=== PATIENT | male | born 1970 | race Caucasian/White ===

== ENCOUNTER 2021-03-05 09:53 | Emergency (ER) | payer MEDICAID ==
--- NOTE | 2021-03-05 09:58 | EDM.PDOC ---
ED HPI GENERAL MEDICAL PROBLEM - General Chief Complaint: General Stated Complaint: SOB, HTN Time Seen by Provider: 03/05/21 10:00 Source of Information: Reports: Patient History Limitations: Reports: No Limitations - History of Present Illness INITIAL COMMENTS - FREE TEXT/NARRATIVE: This patient is a 50 year old male that presents to the ER. Patient reports that for the past 1 year he has had shortness of breath and BLE swelling. The patient reports that gradually over the year he has become more short of breath and increase in BLE edema. Patient reports he was seen in clinic and referred to venous clinic for veins in legs due to the swelling. Patient reports the [facility] that he saw 2 weeks ago, referred him back to his PCP because it was not vein related, but they felt heart related. Patient reports he is supposed to see his PCP to rule out heart related problems for his shortness of breath and edema, but has not yet. The patient reports that he presents to the ER today because since Friday his shortness of breath has become much worse. He reports an increased tightness in his chest that is worse than the previous 1 year. He reports that he continues to have swelling in his BLE and has worsened as well. The patient reports that activity does make his shortness of breath worse. He reports that laying flat or sitting in chair has no difference on his shortness of breath. Patient reports also this weekend having nausea and headache. Denies dizziness, v, d, f, cough, congestion, drainage, rashes. 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 But, when it continued into Friday, he thought he should come to the ER. Onset: Other (1 year) Duration: Getting Worse (Much worse since Friday, even worse this morning per patient.) Location: Reports: Chest Quality: Reports: Other ("tightness") Severity: Moderate Improves with: Reports: None Worsens with: Reports: None Associated Symptoms: Reports: Chest Pain, Cough, Headaches, Nausea/Vomiting, Shortness of Breath. Denies: cough w sputum, Diaphoresis, Fever/Chills, Loss of Appetite, Malaise, Rash, Seizure, Syncope, Weakness - Related Data Allergies Allergy/AdvReac Type Severity Reaction Status Date / Time No Known Allergies Allergy Verified 03/05/21 09:57 Home Meds: Home Meds Escitalopram [Lexapro] 10 mg PO DAILY 03/05/21 [History] Hydrochlorothiazide/Lisinopril [Lisinopril-HCTZ 20-12.5 MG] 1 tab PO DAILY 03/05/21 [History] Ibuprofen 200 mg PO Q6HR PRN 03/05/21 [History] Meloxicam 15 mg PO DAILY 03/05/21 [History] Pantoprazole Sodium [Protonix] 40 mg PO DAILY 03/05/21 [History] ED ROS GENERAL - Review of Systems Review Of Systems: See Below Constitutional: Reports: No Symptoms HEENT: Reports: No Symptoms Respiratory: Reports: Shortness of Breath. Denies: Wheezing, Pleuritic Chest Pain, Cough, Sputum, Hemoptysis Cardiovascular: Reports: Chest Pain, Blood Pressure Problem (HTN per patient), Dyspnea on Exertion, Edema (BLE). Denies: Orthopnea, Palpitations, Syncope Endocrine: Reports: No Symptoms GI/Abdominal: Reports: Nausea : Reports: No Symptoms Musculoskeletal: Reports: No Symptoms Skin: Reports: No Symptoms Neurological: Reports: No Symptoms Psychiatric: Reports: No Symptoms Hematologic/Lymphatic: Reports: No Symptoms Immunologic: Reports: No Symptoms ED EXAM, GENERAL - Physical Exam Exam: See Below Exam Limited By: No Limitations General Appearance: Alert, WD/WN, No Apparent Distress, Obese Eye Exam: Bilateral Eye: Normal Inspection, PERRL Ears: Normal External Exam, Normal Canal, Hearing Grossly Normal, Normal TMs Ear Exam: Bilateral Ear: Auricle Normal, Canal Normal, TM normal Nose: Normal Inspection, Normal Mucosa, No Blood Throat/Mouth: Normal Inspection, Normal Lips, Normal Teeth, Normal Gums, Normal Oropharynx, Normal Voice, No Airway Compromise Head: Atraumatic, Normocephalic Neck: Normal Inspection, Supple, Non-Tender, Full Range of Motion Respiratory/Chest: No Respiratory Distress, Lungs Clear, Normal Breath Sounds, No Accessory Muscle Use, Chest Non-Tender Cardiovascular: Normal Peripheral Pulses, Regular Rate, Rhythm, No Gallop, No JVD, No Murmur, No Rub, Other (BLE Edema Pitting: +3 ) Peripheral Pulses: 2+: Radial (L), Radial (R), Posterior Tibial (L), Posterior Tibial (R), Dorsalis Pedis (L), Dorsalis Pedis (R) GI/Abdominal: Soft, Non-Tender Back Exam: Normal Inspection, Full Range of Motion Extremities: Normal Inspection, Normal Range of Motion, Non-Tender, Normal Capillary Refill, Pedal Edema (+3 BLE) Neurological: Alert, Oriented, Normal Cognition, Normal Gait, No Motor/Sensory Deficits Psychiatric: Anxious Skin Exam: Warm, Dry, Intact, Normal Color, No Rash Lymphatic: No Adenopathy #1 Interpretation EKG Date: 03/05/21 Time: 09:56 Rhythm: NSR Rate (Beats/Min): 88 QRS: Normal ST-T: Normal Comparison: NA - No Prior EKG Course - Vital Signs Last Recorded V/S: Last Vital Signs Temp 96.9 F 03/05/21 09:54 Pulse 78 03/05/21 12:10 Resp 18 03/05/21 10:40 BP 129/64 03/05/21 12:10 Pulse Ox 97 03/05/21 10:40 - Orders/Labs/Meds Orders: Active Orders 24 hr Category Date Time Status Ang Chest [CT] Stat Exams 03/05/21 10:54 Taken Chest 2V [CR] Stat Exams 03/05/21 09:39 Taken TROPONIN I [CHEM] Stat Lab 03/05/21 14:15 Ordered Sodium Chloride 0.9% [Normal Saline] 500 ml Med 03/05/21 12:00 Active IV .BOLUS Sodium Chloride 0.9% [Saline Flush] Med 03/05/21 10:27 Active 10 ml FLUSH ASDIRECTED PRN Saline Lock Insert [OM.PC] Routine Oth 03/05/21 10:27 Ordered Medication Orders Sodium Chloride (Normal Saline) 500 mls @ 1,000 mls/hr IV .BOLUS CRISTI Last Admin: 03/05/21 11:56 Dose: 1,000 mls/hr Documented by: MACKRIC Sodium Chloride (Sodium Chloride 0.9% 10 Ml Syringe) 10 ml FLUSH ASDIRECTED PRN PRN Reason: Keep Vein Open Labs: Laboratory Tests 03/05/21 03/05/21 03/05/21 Range/Units 10:18 10:18 10:18 WBC 9.2 (5.0-10.0) 10^3/uL RBC 5.26 (4.50-6.00) 10^6/uL Hgb 16.9 (14.0-18.0) g/dL Hct 50.0 (40.0-54.0) % MCV 95.1 H (82.0-94.0) fL MCH 32.1 H (27.0-32.0) pg MCHC 33.8 (33.0-38.0) g/dL RDW Coeff of Clarence 13.6 (11.0-15.0) % Plt Count 250 (150-400) 10^3/uL Add Manual Diff Yes Neutrophils % (Manual) 61 (35-85) % Lymphocytes % (Manual) 24 (21-55) % Monocytes % (Manual) 4 (2-12) % Eosinophils % (Manual) 11 H (0-5) % PT 10.3 (9.7-12.3) SEC INR 0.94 (0.92-1.18) D-Dimer, Quantitative (0.00-0.50) Sodium 141 (136-145) mEq/L Potassium 4.0 (3.5-5.0) mEq/L Chloride 104 (98-106) mEq/L Carbon Dioxide 25 (21-32) mmol/L BUN 12 (7-18) mg/dL Creatinine 1.2 (0.7-1.3) mg/dL Est Cr Clr Drug Dosing 75.28 mL/min Estimated GFR (MDRD) > 60 (>=60) mL/min Glucose 120 H (75-99) mg/dL Calcium 8.5 (8.4-10.1) mg/dL Total Bilirubin 0.6 (0.0-1.0) mg/dL AST 16 (15-37) U/L ALT 20 (12-78) U/L Alkaline Phosphatase 115 (46-116) U/L Lactate Dehydrogenase 197 H (100-190) U/L Creatine Kinase 130 (35-232) U/L Troponin I < 0.017 (0.00-0.06) ng/mL NT-Pro-B Natriuret Pep 31 (0-1000) pg/mL Total Protein 7.0 (6.4-8.2) g/dL Albumin 3.0 L (3.4-5.0) g/dL SARS CoV-2 RNA Rapid CHEMO (NEGATIVE) 03/05/21 03/05/21 Range/Units 10:31 10:55 WBC (5.0-10.0) 10^3/uL RBC (4.50-6.00) 10^6/uL Hgb (14.0-18.0) g/dL Hct (40.0-54.0) % MCV (82.0-94.0) fL MCH (27.0-32.0) pg MCHC (33.0-38.0) g/dL RDW Coeff of Clarence (11.0-15.0) % Plt Count (150-400) 10^3/uL Add Manual Diff Neutrophils % (Manual) (35-85) % Lymphocytes % (Manual) (21-55) % Monocytes % (Manual) (2-12) % Eosinophils % (Manual) (0-5) % PT (9.7-12.3) SEC INR (0.92-1.18) D-Dimer, Quantitative 2.12 H (0.00-0.50) Sodium (136-145) mEq/L Potassium (3.5-5.0) mEq/L Chloride (98-106) mEq/L Carbon Dioxide (21-32) mmol/L BUN (7-18) mg/dL Creatinine (0.7-1.3) mg/dL Est Cr Clr Drug Dosing mL/min Estimated GFR (MDRD) (>=60) mL/min Glucose (75-99) mg/dL Calcium (8.4-10.1) mg/dL Total Bilirubin (0.0-1.0) mg/dL AST (15-37) U/L ALT (12-78) U/L Alkaline Phosphatase (46-116) U/L Lactate Dehydrogenase (100-190) U/L Creatine Kinase (35-232) U/L Troponin I (0.00-0.06) ng/mL NT-Pro-B Natriuret Pep (0-1000) pg/mL Total Protein (6.4-8.2) g/dL Albumin (3.4-5.0) g/dL SARS CoV-2 RNA Rapid CHEMO Negative (NEGATIVE) Meds: Medications Generic Name Dose Route Start Last Admin Trade Name Freq PRN Reason Stop Dose Admin Sodium Chloride 500 mls @ 1,000 mls/hr 03/05/21 12:00 03/05/21 11:56 Normal Saline IV 1,000 mls/hr .BOLUS CRISTI Administration Sodium Chloride 10 ml 03/05/21 10:27 Sodium Chloride 0.9% 10 Ml Syringe FLUSH ASDIRECTED PRN Keep Vein Open Discontinued Medications Generic Name Dose Route Start Last Admin Trade Name Verenice PRN Reason Stop Dose Admin Aspirin 324 mg 03/05/21 10:26 03/05/21 10:33 Aspirin 81 Mg Tab.Chew PO 03/05/21 10:27 324 mg ONETIME ONE Administration Iopamidol 100 ml 03/05/21 11:15 03/05/21 11:53 Iopamidol 755 Mg/Ml 100 Ml Bottle IVPUSH 03/05/21 11:16 100 ml ONETIME ONE Administration Morphine Sulfate 4 mg 03/05/21 11:37 03/05/21 11:55 Morphine 4 Mg/Ml Vial IVPUSH 03/05/21 11:38 4 mg ONETIME ONE Administration Morphine Sulfate 4 mg 03/05/21 12:29 03/05/21 12:59 Morphine 4 Mg/Ml Vial IVPUSH 03/05/21 12:30 4 mg ONETIME ONE Administration Nitroglycerin 0.4 mg 03/05/21 10:28 03/05/21 12:10 Nitroglycerin 0.4 Mg Tab.Sl SL 0.4 mg Q5M PRN Administration Chest Pain Ondansetron HCl 4 mg 03/05/21 11:37 03/05/21 11:55 Ondansetron 4 Mg/2 Ml Sdv IVPUSH 03/05/21 11:38 4 mg NOW STA Administration Ondansetron HCl 4 mg 03/05/21 12:13 03/05/21 12:21 Ondansetron 4 Mg/2 Ml Sdv IVPUSH 03/05/21 12:14 4 mg NOW STA Administration - Radiology Interpretation Free Text/Narrative:: CXR: Lungs clear, no acute findings. CTA Chest: No evidence of PE, minor atelectasis in the lingula and right middle lobe. No significant nodules or infiltrates, no effusion. Small hiatal hernia, simple left renal cyst. CT Results Date: 03/05/21 CT Results Time: 13:05 - Re-Assessments/Exams Free Text/Narrative Re-Assessment/Exam: 03/05/21 11:11 Patient reports the nitro did help his shortness of breath and chest tightness some. He reports his pain was a 7/10, now to a 5/10. Patient D-dimer is elevated, will CTA chest and COVID test. Patient BNP is wnl, troponin wnl, other labs unremarkable other than his D-Dimer. Patient does report that at the [facility] in [place], they did US of both his legs and he did not have a blood clot in legs. 03/05/21 11:44 HEART Score 4, moderate. Patient reports he is a 1/2 pack/day smoker. Denies alcohol use. Reports father side has history of heart problems with father having VA in 50s. 03/05/21 11:57 Will give NS 500ml bolus due to getting Iv contrast dye. Patient got double dose per radiology due to IV location. RN was unable to obtain IV access above the wrist. 03/05/21 12:18 Patient reports after the 3 SL nitro, Morphine, and Zofran his pain remains at a 5/10. He reports his shortness of breath is mildly better, but still present. He reports that he has nausea at this time. 03/05/21 13:24 This patient reports that his shortness of breath has improved. He reports the chest pain tightness is much better. He will not give it a number for me now, but reports its "basically gone". I discussed with the patient having a stress test done. He reports he agrees to have a stress test done. The stress test in [place] can be done on . 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 We discussed me calling [facility] in [place]. Discussed with him, if he is willing for transfer if they would like to admit and stress test in the morning. He refuses this. He reports that he is not going to be transferred. He reports that he just wants to have the stress test here in [place]. He reports that he can followup with his PCP tomorrow for a recheck. I educated the patient about his risk factors and the need for a stress test. Discussed risk with not consulting cardiology, but he reports he just wants to be discharged and followup with PCP tomorrow and stress later this week. I discussed with him about possible admission, but patient has refused this as well. Educated the patient about risk of , cardiac arrest. The patient reports that he will come back if his shortness of breath or chest pain worsens, or other concerns. The patient has agreed to allow me to redraw a repeat troponin. If negative, will discharge home at patient request. He is aware of all the risk vs benefits associated with discharge home and has accepted the risks. Departure - Departure Time of Disposition: 14:25 Disposition: Home, Self-Care 01 Condition: Fair Clinical Impression: Nausea, Pitting edema Chest pain Qualifiers: Chest pain type: unspecified Qualified Code(s): R07.9 - Chest pain, unspecified Dyspnea Qualifiers: Dyspnea type: shortness of breath Qualified Code(s): R06.02 - Shortness of breath; R06.00 - Dyspnea, unspecified; R06.01 - Orthopnea - Discharge Information *PRESCRIPTION DRUG MONITORING PROGRAM REVIEWED*: Not Applicable *COPY OF PRESCRIPTION DRUG MONITORING REPORT IN PATIENT BRENDAN: Not Applicable Instructions: Shortness of Breath, Adult, [id number], Nonspecific Chest Pain, Adult, [id number], Peripheral Edema Referrals: Caty Rocha [employer] [Primary Care Provider] - Forms: ED Department Discharge Additional Instructions: Followup with your primary care provider tomorrow Have a stress test done this week Return to the ER for worsening of condition or any emergent concerns such as increase in chest pain or shortness of breath Return to the ER if you change your mind about Cardiology Consult with possible transfer to [facility] Sepsis Event Note (ED) - Evaluation Sepsis Screening Result: No Definite Risk - Focused Exam Vital Signs: Vital Signs Temp Pulse Pulse Resp BP BP Pulse Ox 03/05/21 12:10 78 129/64 03/05/21 11:56 91 129/74 03/05/21 10:40 91 18 134/79 97 03/05/21 10:33 98 134/78 03/05/21 09:54 96.9 F 98 18 125/81 98 - My Orders Last 24 Hours: My Active Orders 03/05/21 09:39 Chest 2V [CR] Stat 03/05/21 10:27 Sodium Chloride 0.9% [Saline Flush] 10 ml FLUSH ASDIRECTED PRN Saline Lock Insert [OM.PC] Routine 03/05/21 10:54 Ang Chest [CT] Stat 03/05/21 12:00 Sodium Chloride 0.9% [Normal Saline] 500 ml IV .BOLUS 03/05/21 14:15 TROPONIN I [CHEM] Stat - Assessment/Plan Last 24 Hours: My Active Orders 03/05/21 09:39 Chest 2V [CR] Stat 03/05/21 10:27 Sodium Chloride 0.9% [Saline Flush] 10 ml FLUSH ASDIRECTED PRN Saline Lock Insert [OM.PC] Routine 03/05/21 10:54 Ang Chest [CT] Stat 03/05/21 12:00 Sodium Chloride 0.9% [Normal Saline] 500 ml IV .BOLUS 03/05/21 14:15 TROPONIN I [CHEM] Stat Plan: PLEASE SEE RN NOTE FOR PFSH
[2021-03-05] MEDS ORDERED: Aspirin 81 MG Tab.Chew PO ONE (10:26)
[2021-03-05] MEDS ORDERED: Sodium Chloride 0.9% 10 ML Syringe FLUSH PRN (10:27)
[2021-03-05] MEDS: Nitroglycerin 0.4 MG Tab.SL SL PRN ×3 (10:33→12:10)
[2021-03-05 10:45] LABS: CHLORIDE,CL 104 mEq/L (98-106); SODIUM,NA 141 mEq/L (136-145)
[2021-03-05] MEDS ORDERED: Iopamidol 755 Mg/ML 100 ML Bottle IVPUSH ONE (11:15)
[2021-03-05] MEDS ORDERED: Ondansetron 4 MG/2 ML SDV IVPUSH STA ×2 (11:37→12:13)
[2021-03-05] MEDS ORDERED: Morphine 4 MG/ML VIAL IVPUSH ONE ×2 (11:37→12:29)
[2021-03-05] MEDS ORDERED: Sodium Chloride 0.9% 500 ML IV SCH (12:00)
== END 2021-03-05 15:02 | disposition home or self-care (01) ==
LOC: CC.ED 09:53
DX: R07.89 Other chest pain (principal); R06.02 Shortness of breath; R11.2 Nausea with vomiting, unspecified; R60.0 Localized edema; R06.01 Orthopnea; Z20.822 Contact with and (suspected) exposure to COVID-19
CPT/HCPCS: 36415; 71046; 71275; 80053; 82550; 83615; 83880; 84484; 85025; 85379; 85610; 87635; 93005; 96374; 96375; 96376; 99285; A9270; J2270; J2405; J7040; Q9967; U0002

== ENCOUNTER 2021-04-10 11:58 | Emergency (ER) | payer MEDICAID ==
[2021-04-10] MEDS: Nitroglycerin Lingual Spray 4.9 GM Canister TRLING PRN ×2 (12:01→12:27)
[2021-04-10] MEDS ORDERED: Aspirin 81 MG Tab.Chew PO ONE (12:09)
[2021-04-10 12:26] LABS: PTT,PARTIAL THROMBOPLSTIN TIME 26.3 SEC (23.2-32.3)
[2021-04-10 12:36] LABS: CHLORIDE,CL 103 mEq/L (98-106); SODIUM,NA 139 mEq/L (136-145)
--- NOTE | 2021-04-10 12:55 | EDM.PDOC ---
ED HPI GENERAL MEDICAL PROBLEM - General Chief Complaint: Chest Pain Stated Complaint: chest pain, increased B/P Time Seen by Provider: 04/10/21 12:36 Source of Information: Reports: Patient History Limitations: Reports: No Limitations - History of Present Illness INITIAL COMMENTS - FREE TEXT/NARRATIVE: Fidel is a 50 yo male who presents to the ED with c/o ongoing chest tightness and shortness of breath. He reports he has been struggling with this for some time, at least the last year. Did have recent extensive workup for this, including Lexiscan, which revealed area of infarction. He is set up to see cardiology Dr. Nunez next week. He reports that these symptoms have been ongoing, but what worried him today was that his BP was now elevated. Was recently started on lisinopril-hctz. Reports he has been taking that without issue. Reports at home today his BP was 170s/120s, prompting his ED presentation. Upon presentation to the ED BP is 151/128. He did receive 1 nitro, which reduced his BP to 126/69. No improvement in chest tightness noted. He reports lately he gets very winded and "dripping with sweat" with even the slightest exertion. This too has been ongoing and has not worsened today. Duration: Intermittent Location: Reports: Chest Quality: Reports: Other (Tightness) Improves with: Reports: Rest Associated Symptoms: Reports: Diaphoresis, Shortness of Breath. Denies: Cough, Fever/Chills, Loss of Appetite, Malaise, Nausea/Vomiting, Rash, Seizure, Syncope, Weakness - Related Data Allergies Allergy/AdvReac Type Severity Reaction Status Date / Time No Known Allergies Allergy Verified 03/22/21 13:06 Home Meds: Home Meds Escitalopram [Lexapro] 10 mg PO DAILY 03/05/21 [History] Hydrochlorothiazide/Lisinopril [Lisinopril-HCTZ 20-12.5 MG] 1 tab PO DAILY 03/05/21 [History] Ibuprofen 200 mg PO Q6HR PRN 03/05/21 [History] Pantoprazole Sodium [Protonix] 40 mg PO DAILY 03/05/21 [History] Furosemide 20 mg PO DAILY PRN 03/22/21 [History] Nitroglycerin 0.3 mg SL Q4H PRN #30 tab.subl 04/10/21 [Rx] amLODIPine [Norvasc] 5 mg PO DAILY #90 tab 04/10/21 [Rx] Past Medical History Cardiovascular History: Reports: High Cholesterol, Hypertension Psychiatric History: Reports: Anxiety Social & Family History - Family History Family Medical History: No Pertinent Family History - Caffeine Use Caffeine Use: Reports: None ED ROS GENERAL - Review of Systems Review Of Systems: Comprehensive ROS is negative, except as noted in HPI. Constitutional: Denies: Fever, Malaise, Weakness, Fatigue, Decreased Appetite HEENT: Reports: No Symptoms Respiratory: Reports: Shortness of Breath. Denies: Wheezing, Pleuritic Chest Pain, Sputum Cardiovascular: Reports: Blood Pressure Problem, Dyspnea on Exertion, Edema. Denies: Chest Pain, Claudication, Lightheadedness GI/Abdominal: Denies: Abdominal Pain, Constipation, Diarrhea, Nausea, Vomiting : Reports: No Symptoms Musculoskeletal: Reports: No Symptoms Skin: Reports: No Symptoms Neurological: Reports: No Symptoms Psychiatric: Reports: Anxiety Hematologic/Lymphatic: Reports: No Symptoms Immunologic: Reports: No Symptoms ED EXAM, GENERAL - Physical Exam Exam: See Below Exam Limited By: No Limitations General Appearance: Alert, WD/WN, No Apparent Distress, Obese Eye Exam: Bilateral Eye: EOMI, Normal Fundi, Normal Inspection, PERRL Head: Atraumatic, Normocephalic Neck: Normal Inspection, Supple, Non-Tender, Full Range of Motion Respiratory/Chest: No Respiratory Distress, Lungs Clear, Normal Breath Sounds, No Accessory Muscle Use, Chest Non-Tender Cardiovascular: Normal Peripheral Pulses, No Murmur, Tachycardia Peripheral Pulses: 2+: Dorsalis Pedis (L), Dorsalis Pedis (R) GI/Abdominal: Normal Bowel Sounds, Soft, Non-Tender, No Organomegaly, No Distention, No Abnormal Bruit, No Mass Extremities: Normal Range of Motion, Normal Capillary Refill, Pedal Edema (2+ pitting) Neurological: Alert, Oriented, CN II-XII Intact, Normal Cognition, Normal Gait, Normal Reflexes, No Motor/Sensory Deficits Psychiatric: Normal Affect, Normal Mood Skin Exam: Warm, Dry, Intact, Normal Color, No Rash Course - Vital Signs Last Recorded V/S: Last Vital Signs Temp 98.6 F 04/10/21 11:58 Pulse 96 04/10/21 12:36 Resp 17 04/10/21 11:58 BP 113/78 04/10/21 12:36 Pulse Ox 97 04/10/21 11:58 - Orders/Labs/Meds Labs: Laboratory Tests 04/10/21 04/10/21 04/10/21 Range/Units 12:04 12:04 12:04 WBC 10.7 (4.0-11.0) 10^3/uL RBC 5.22 (4.50-6.00) x10^6/uL Hgb 16.3 (14.0-18.0) g/dL Hct 49.1 (42.0-52.0) % MCV 94.1 (83.0-97.0) fL MCH 31.2 (27.0-32.0) pg MCHC 33.2 (32.0-36.0) g/dL RDW Coeff of Clarence 12.9 (11.0-15.0) % Plt Count 241 (150-400) 10^3/uL Immature Gran % (Auto) 0.2 (0.0-4.9) % Neut % (Auto) 58.6 (41-71) % Lymph % (Auto) 21.6 L (24-44) % [place] % (Auto) 9.4 (0-10) % Eos % (Auto) 9.5 H (0-6) % Baso % (Auto) 0.7 (0-1) % Neut # (Auto) 6.26 (1.80-8.00) x10^3/uL Lymph # (Auto) 2.31 (0.60-5.00) 10^3/uL [place] # (Auto) 1.01 (0.00-1.50) 10^3/uL Eos # (Auto) 1.02 (0.00-1.50) 10^3/uL Baso # (Auto) 0.07 (0.00-0.50) 10^3/uL Immature Gran # (Auto) 0.02 (0.00-0.49) 10^3/uL PT 10.5 (9.7-12.3) SEC INR 0.96 (0.92-1.18) APTT 26.3 (23.2-32.3) SEC Sodium 139 (136-145) mEq/L Potassium 4.4 (3.5-5.0) mEq/L Chloride 103 (98-106) mEq/L Carbon Dioxide 30 (21-32) mmol/L BUN 19 H D (7-18) mg/dL Creatinine 1.4 H (0.7-1.3) mg/dL Est Cr Clr Drug Dosing 62.43 mL/min Estimated GFR (MDRD) 54 L (>=60) mL/min Glucose 104 H (75-99) mg/dL Calcium 9.3 (8.4-10.1) mg/dL Magnesium 2.2 (1.8-2.4) mg/dL Total Bilirubin 0.5 (0.0-1.0) mg/dL AST 18 (15-37) U/L ALT 27 (12-78) U/L Alkaline Phosphatase 130 H (46-116) U/L Lactate Dehydrogenase 222 H (100-190) U/L Creatine Kinase 127 (35-232) U/L Troponin I < 0.017 (0.00-0.06) ng/mL NT-Pro-B Natriuret Pep 44 (0-1000) pg/mL Total Protein 7.7 (6.4-8.2) g/dL Albumin 3.3 L (3.4-5.0) g/dL Lipase 63 L (73-393) U/L Meds: Medications Discontinued Medications Generic Name Dose Route Start Last Admin Trade Name Freq PRN Reason Stop Dose Admin Aspirin 324 mg 04/10/21 12:09 04/10/21 12:00 Aspirin 81 Mg Tab.Chew PO 04/10/21 12:10 324 mg ONETIME ONE Administration Nitroglycerin 0.4 gm 04/10/21 12:10 04/10/21 12:27 Nitroglycerin Lingual [place] 4.9 Gm Canister TRLING 1 spray ASDIRECTED PRN Administration Chest Pain Departure - Departure Time of Disposition: 12:55 Disposition: Home, Self-Care 01 Condition: Fair Clinical Impression: Chest tightness Hypertension Qualifiers: Hypertension type: unspecified Qualified Code(s): I10 - Essential (primary) hypertension CAD (coronary artery disease) Qualifiers: Coronary Disease-Associated Artery/Lesion type: unspecified vessel or lesion type [place] vs. transplanted heart: [place] heart Associated angina: with stable angina Qualified Code(s): I25.118 - Atherosclerotic heart disease of [place] coronary artery with other forms of angina pectoris Prescriptions: Nitroglycerin 0.3 mg SL Q4H PRN #30 tab.subl PRN Reason: Chest Pain amLODIPine [Norvasc] 5 mg PO DAILY #90 tab Instructions: Coronary Artery Disease, Male, Nonspecific Chest Pain, Adult, [id number], Hypertension, Adult, [id number], Preventing Hypertension Referrals: Caty Rocha [employer]ER [Primary Care Provider] - Forms: ED Department Discharge Additional Instructions: - Start amlodipine (Norvasc) 5 mg daily - Monitor BP daily. Notify clinic if remains elevated - May use nitroglycerin as needed for chest pain - Avoid overexertion. Activity as tolerated - Follow up with cardiology as scheduled April 17 - Return to ED for emergent needs Sepsis Event Note (ED) - Evaluation Sepsis Screening Result: No Definite Risk - Problem List & Annotations (1) Chest tightness SNOMED Code(s): 15037577 Code(s): R07.89 - OTHER CHEST PAIN Status: Acute (2) CAD (coronary artery disease) SNOMED Code(s): 30523429 Code(s): I25.10 - ATHSCL HEART DISEASE OF [place] CORONARY ARTERY W/O ANG PCTRS Status: Acute Qualifiers: Coronary Disease-Associated Artery/Lesion type: unspecified vessel or lesion type [place] vs. transplanted heart: [place] heart Associated angina: with stable angina Qualified Code(s): I25.118 - Atherosclerotic heart disease of [place] coronary artery with other forms of angina pectoris (3) Dyspnea SNOMED Code(s): 270218134 Code(s): R06.00 - DYSPNEA, UNSPECIFIED Status: Acute Qualifiers: Dyspnea type: shortness of breath Qualified Code(s): R06.02 - Shortness of breath; R06.00 - Dyspnea, unspecified; R06.01 - Orthopnea (4) Hypertension SNOMED Code(s): 80496027 Code(s): I10 - ESSENTIAL (PRIMARY) HYPERTENSION Status: Acute Qualifiers: Hypertension type: unspecified Qualified Code(s): I10 - Essential (primary) hypertension - Assessment/Plan Plan: 50 yo male presents with longstanding history of chest tightness, dyspnea and elevated BP. Cardiac workup negative for acute/emergent findings. BP elevated. Recommend he start amlodipine daily. May also use nitro as needed for chest pain. Recommend he monitor his BP daily. Do not overexert. Recommend he follow up with cardiology as scheduled next week. Return to ED for any emergent needs. Patient discharged from facility in stable condition.
== END 2021-04-10 13:10 | disposition home or self-care (01) ==
LOC: CC.ED 11:58
DX: I25.118 Atherosclerotic heart disease of native coronary artery with other forms of angina pectoris (principal); I10 Essential (primary) hypertension; Z79.899 Other long term (current) drug therapy
CPT/HCPCS: 36415; 71046; 80053; 82550; 83615; 83690; 83735; 83880; 84484; 85025; 85610; 85730; 93005; 99285; A9270